=== PATIENT | female | born 1965 | race Caucasian/White ===

== ENCOUNTER → 2023-05-12 | Emergency (ER) | payer BC ==
[~2023-05-12] MED LIST: BUPIVACAINE 0.5% PF 10 ML VIAL ONE; HYDROCODONE/APAP 5/325 MG TAB ONE
--- NOTE | 2023-05-12 19:16 | RAD REPORT ---
EXAM DESCRIPTION: RAD - Hand Right 3 View - 05/12/2023 6:07 pm CLINICAL HISTORY: PAIN COMPARISON: No comparisons TECHNIQUE: Right hand, 3 views. FINDINGS: Mildly comminuted fractures of the left third digit distal phalanx. Soft tissue swelling a nd irregularity of the third and fourth digit nails. There is no dislocation or periosteal reaction noted. No foreign body or other soft tissue abnormalit y. IMPRESSION: Mildly comminuted fractures of the left third digit distal phalanx.
--- NOTE | 2023-05-12 19:24 | ER ---
Nurse's Notes [facility] Name: Jade Parks Age: 58 yrs Sex: Female : 1965 Arrival Date: 05/12/2023 Time: 17:32 Bed 17 Private MD: Rishabh Fernando Diagnosis: Contusion to right fourth digit;Tuft fracture to right third digit Presentation: 05/12 17:39 Chief complaint: Patient states: Smashed middle digits of R hand in garage door, no ph bleeding noted. Coronavirus screen: Vaccine status: Patient reports receiving the 2nd dose of the covid vaccine. Ebola Screen: No symptoms or risks identified at this time. Initial Sepsis Screen: Does the patient meet any 2 criteria? No. Patient's initial sepsis screen is negative. Does the patient have a suspected source of infection? No. Patient's initial sepsis screen is negative. Risk Assessment: Do you want to hurt yourself or someone else? Patient reports no desire to harm self or others. Onset of symptoms was May 12, 2023. 17:39 Method Of Arrival: Ambulatory 17:39 Acuity: WALKER 4 ph Triage Assessment: 17:42 General: Appears in no apparent distress. uncomfortable. Pain: Complains of pain in ph dorsal aspect of distal phalanx of right middle finger, dorsal aspect of middle phalanx of right middle finger, dorsal aspect of distal phalanx of right ring finger and dorsal aspect of middle phalanx of right ring finger. Musculoskeletal: Circulation, motion, and sensation intact. 18:20 General: Behavior is calm, cooperative. Injury Description: Crush injury sustained to tl4 dorsal aspect of middle phalanx of right ring finger and dorsal aspect of distal phalanx of right ring finger and dorsal aspect of middle phalanx of right middle finger and dorsal aspect of distal phalanx of right middle finger. Historical: - Allergies: 17:41 No Known Allergies; ph - PMHx: 17:41 Hypertensive disorder; Anxiety; Autoimmune disease; ph - Immunization history:: Adult Immunizations unknown. - Social history:: Smoking status: Patient denies any tobacco usage or history of. Screenin:19 [facility] ED Fall Risk Assessment (Adult) History of falling in the last 3 months, tl4 including since admission No falls in past 3 months (0 pts) Confusion or Disorientation No (0 pts) Intoxicated or Sedated No (0 pts) Impaired Gait No (0 pts) Mobility Assist Device Used No (0 pt) Altered Elimination No (0 pt) Score/Fall Risk Level 0 - 2 = Low Risk Oriented to surroundings, Maintained a safe environment, Educated pt \T\ family on fall prevention, incl call for assistance when getting out of bed, Assessed \T\ reinforced patient's understanding of fall precautions, Provided non-skid footwear, Hourly rounding (assess needs \T\ fall precautionary measures) done, Used ambulatory aids as needed (educated on \T\ assisted with), Used gait belt as appropriate. Abuse screen: Denies threats or abuse. Denies injuries from another. Nutritional screening: No deficits noted. Tuberculosis screening: No symptoms or risk factors identified. Assessment: 18:17 Reassessment: Patient and/or family updated on plan of care and expected duration. Pain tl4 level reassessed. Patient is alert, oriented x 3, equal unlabored respirations, skin warm/dry/pink. Patient states symptoms have improved. pain is controlled. Neuro: No deficits noted. Cardiovascular: No deficits noted. Respiratory: No deficits noted. GI: No deficits noted. No signs and/or symptoms were reported involving the gastrointestinal system. : No deficits noted. No signs and/or symptoms were reported regarding the genitourinary system. EENT: No deficits noted. No signs and/or symptoms were reported regarding the EENT system. Vital Signs: 17:39 Resp 18; Temp 97.3; Pulse Ox 98% ; Weight 72.57 kg; Height 5 ft. 6 in. ; ph 17:43 BP 118 / 92; Pulse 72; ap3 18:18 BP 120 / 63; Pulse 104; Resp 16; Pulse Ox 99% on R/A; tl4 19:44 BP 131 / 73; Pulse 69; Resp 16; Temp 98.5(TE); Pulse Ox 99% on R/A; tl4 17:39 Body Mass Index 25.82 (72.57 kg, 167.64 cm) ph ED Course: 17:34 Patient arrived in ED. mr 17:34 Cruzito Granados MD is Attending Physician. rt 17:34 Rishabh Fernando MD is Private Physician. mr 17:41 Triage completed. ph 17:42 Arm band placed on Patient placed in an exam room. ph 17:44 Rei Ferrer, RN is Primary Nurse. tl4 18:09 XRAY Hand RIGHT 3 View In Process Unspecified. EDMS 18:19 Patient has correct armband on for positive identification. Placed in gown. Bed in low tl4 position. Call light in reach. Side rails up X 1. Adult w/ patient. Provided Education on: ed process. Client placed on continuous cardiac and pulse oximetry monitoring. NIBP monitoring applied. Door closed. Noise minimized. Moved to private room. Warm blanket given. 18:19 No provider procedures requiring assistance completed. Patient did not have IV access tl4 during this emergency room visit. 19:23 Rishabh Fernando MD is Referral Physician. rt 19:51 Nilesh tape right ring and right middle finger. tl4 Administered Medications: 18:14 Drug: Bupivacaine Infiltration (0.5 %) 5 ml 10 ml Infiltration once {Note: administered tl4 by Dr Granados.} Volume: 10 ml; Route: Infiltration; 18:14 Drug: [place] PO 5 mg-325 mg 1 tabs PO once Route: PO; tl4 19:43 Follow up: Response: Pain is decreased tl4 Medication: 18:19 VIS not applicable for this client. tl4 Outcome: 19:24 Discharge ordered by MD. rt 19:52 Discharged to home ambulatory, with family, tl4 19:52 Condition: stable 19:52 Discharge instructions given to patient, family, Instructed on discharge instructions, follow up and referral plans. medication usage, Demonstrated understanding of instructions, follow-up care, medications, Prescriptions given X 1, 19:52 Patient left the ED. tl4 Signatures: Dispatcher [employer] EDIL Bola Bailee, Reg Reg Izabel Whitehead, RN RN Isabelle Chaudhry RN RN Cruzito Connors MD MD rt Rei Ferrer RN RN tl4
--- NOTE | 2023-05-12 19:24 | EDPHYS ---
Physician Documentation [facility] Name: Jade Parks Age: 58 yrs Sex: Female : 1965 Arrival Date: 05/12/2023 Time: 17:32 Bed 17 Private MD: Rishabh Fernando ED Physician Cruzito Granados Historical: - Allergies: 05/12 17:41 No Known Allergies; ph - PMHx: 17:41 Hypertensive disorder; Anxiety; Autoimmune disease; ph - Immunization history:: Adult Immunizations unknown. - Social history:: Smoking status: Patient denies any tobacco usage or history of. Vital Signs: 17:39 Resp 18; Temp 97.3; Pulse Ox 98% ; Weight 72.57 kg; Height 5 ft. 6 in. ; ph 17:43 BP 118 / 92; Pulse 72; ap3 18:18 BP 120 / 63; Pulse 104; Resp 16; Pulse Ox 99% on R/A; tl4 19:44 BP 131 / 73; Pulse 69; Resp 16; Temp 98.5(TE); Pulse Ox 99% on R/A; tl4 17:39 Body Mass Index 25.82 (72.57 kg, 167.64 cm) ph MDM: 17:41 Patient medically screened. rt 05/12 17:48 Order name: XRAY Hand RIGHT 3 View; Complete Time: 19:17 rt 05/12 19:23 Order name: Splint - Finger: middle finger with shorty taping; Complete Time: 19:43 rt Administered Medications: 18:14 Drug: Bupivacaine Infiltration (0.5 %) 5 ml 10 ml Infiltration once {Note: administered tl4 by Dr Granados.} Volume: 10 ml; Route: Infiltration; 18:14 Drug: Thida PO 5 mg-325 mg 1 tabs PO once Route: PO; tl4 19:43 Follow up: Response: Pain is decreased tl4 Disposition Summary: 05/12/23 19:24 Discharge Ordered Notes: Location: Home rt Problem: new rt Symptoms: have improved rt Condition: Stable rt Diagnosis - Contusion to right fourth digit rt - Tuft fracture to right third digit rt Followup: rt - With: Rishabh Fernando MD - When: 5 - 6 days - Reason: Discharge Instructions: - Discharge Summary Sheet rt - Finger Fracture, Adult rt Forms: - Medication Reconciliation Form rt - Thank You Letter rt - Antibiotic Education rt - Prescription Opioid Use rt - Patient Portal Instructions rt - Leadership Thank You Letter rt Prescriptions: - acetaminophen-codeine 300-30 mg Oral tablet - take 1 tablet ORAL route every 6 hours as needed for pain; 21 tablet; Refills: rt 0, Product Selection Permitted Signatures: Dispatcher [employer] Izabel Montanez RN RN Cruzito Granados MD MD rt Rei Ferrer RN RN tl4
[2023-05-12 20:08] VITALS: BP 131/73; TEMP 98.5; O2SAT 99
== END ==
LOC: ER 17:32
DX: S62.633A Displaced fracture of distal phalanx of left middle finger, initial encounter for closed fracture (principal); S60.041A Contusion of right ring finger without damage to nail, initial encounter